=== PATIENT | male | born 1985 | race Two or more races ===

== ENCOUNTER 2018-03-09 13:41 | Emergency (ER) | payer OTHER ==
--- NOTE | 2018-03-09 14:13 | PDOC ---
Rapid Medical Evaluation Medical Evaluation: 03/09/18 14:08 I have performed a brief in-person evaluation of this patient. The patient presents with a chief complaint of: Rash x 1 month, recurrent, tested neg for STDs 4 months ago per pt. Also c/o abd pain w/ nausea x 1 month. Had fever of 102 last night, resolved w/ motrin Pertinent physical exam findings: tachy to 118, erythematous papules to face/b/ l palms, back and knee I have ordered the following:labs The patient will proceed to the ED for further evaluation. Discharge Disposition - Diagnosis Rash and nonspecific skin eruption - Referrals - Patient Instructions - Post Discharge Activity
[2018-03-09 14:24] VITALS: BMI 20.6
[2018-03-09 14:37] LABS: BASO % 0.9 % (0-2.0); EOS % 0.3 % (0-4.5); HEMATOCRIT 34.4 % (35.4-49); HEMOGLOBIN 11.8 GM/dL (11.7-16.9); LYMPH % 29.3 % (8-40); MCH 29.8 pg (25.7-33.7); MCHC 34.4 g/dl (32.0-35.9); MEAN CELL VOLUME 86.8 fl (80-96); MEAN PLT VOLUME 10.1 fl (7.5-11.1); MONO % 6.6 % (3.8-10.2); NEUT % 62.9 % (42.8-82.8); PLATELET COUNT 106 K/MM3 (134-434); RBC 3.96 M/mm3 (4.00-5.60); RDW 12.6 % (11.9-15.9); WHITE BLOOD COUNT 3.1 K/mm3 (4.0-10.0)
[2018-03-09 14:57] LABS: URINE APPEARANCE CLEAR; URINE BILIRUBIN NEGATIVE (<2.0 mg/dL); URINE COLOR AMBER; URINE GLUCOSE (UA) NEGATIVE (NEGATIVE); URINE KETONE NEGATIVE (NEGATIVE); URINE LEUK ESTERASE NEGATIVE (NEGATIVE); URINE NITRITE NEGATIVE (NEGATIVE); URINE UROBILINOGEN 4.0 E.U/dl mg/dL (0.2-1.0)
[2018-03-09 14:58] LABS: URINE PROTEIN 1+ (NEGATIVE)
[2018-03-09 15:02] LABS: EPI CELLS RARE /HPF (FEW); URINE MUCUS RARE
[2018-03-09 15:10] LABS: ALBUMIN 3.5 g/dl (3.4-5.0); ALK PHOS 110 U/L (45-117); ANION GAP 6 (8-16); BILIRUBIN,TOTAL 0.5 mg/dL (0.2-1.0); BLOOD UREA NITROGEN 14 mg/dL (7-18); CALCIUM 8.4 mg/dL (8.5-10.1); CHLORIDE 105 mmol/L (98-107); CO2 29 mmol/L (21-32); CREATININE 0.8 mg/dL (0.7-1.3); GLUCOSE,RANDOM 86 mg/dL (74-106); POTASSIUM 4.1 mmol/L (3.5-5.1); SGOT/AST 35 U/L (15-37); SGPT/ALT 26 U/L (12-78); SODIUM 140 mmol/L (136-145); TOT PROT 7.6 g/dl (6.4-8.2)
[2018-03-09 15:35] LABS: COCAINE, UR NEGATIVE ng/ml (CUTOFF=300); OPIATES, URI NEGATIVE ng/ml (CUTOFF=300); PHENCYCLIDINE,URINE NEGATIVE ng/ml (CUTOFF=25); URINE AMPHETAMINES NEGATIVE ng/ml (CUTOFF=500); URINE BARBITURATES NEGATIVE ng/ml (CUTOFF=200); URINE BENZODIAZEPINES NEGATIVE ng/ml (CUTOFF=200)
[2018-03-09 15:36] LABS: METHADONE, UR NEGATIVE ng/ml (CUTOFF=300)
[2018-03-09] MEDS ORDERED: PANTOPRAZOLE SODIUM 40 MG VIAL IVPUSH ONE (15:53)
[2018-03-09] MEDS ORDERED: SODIUM CHLORIDE 0.9% 500 ML INFUS.BAG IV ONE (15:53)
[2018-03-09] MEDS ORDERED: PANTOPRAZOLE SODIUM 40 MG/100 ML BAG IVPB ONE (16:17)
--- NOTE | 2018-03-09 19:05 | PDOC ---
History of Present Illness - General Chief Complaint: Rash Stated Complaint: RASH, VOMITING Time Seen by Provider: 03/09/18 14:35 History Source: Patient Exam Limitations: No Limitations Past History - Past Medical History Allergies/Adverse Reactions: Allergies Allergy/AdvReac Type Severity Reaction Status Date / Time No Known Allergies Allergy Verified 03/09/18 14:23 Home Medications: Ambulatory Orders NK [No Known Home Medication] 03/09/18 COPD: No - Suicide/Smoking/Psychosocial Hx Smoking History: Current every day smoker Number of Cigarettes Smoked Daily: 3 Information on smoking cessation initiated: No Hx Alcohol Use: No Drug/Substance Use Hx: Yes (Marijuana once daily) *Physical Exam - Vital Signs Last Vital Signs Temp Pulse Resp BP Pulse Ox 98.1 F 118 H 16 107/70 97 03/09/18 14:05 03/09/18 14:05 03/09/18 14:05 03/09/18 14:05 03/09/18 14:05 ED Treatment Course - LABORATORY CBC & Chemistry Diagram: 03/09/18 14:27 03/09/18 14:27 - ADDITIONAL ORDERS Additional order review: Laboratory Results 03/09/18 03/09/18 03/09/18 14:27 14:27 14:27 Sodium Potassium Chloride Carbon Dioxide Anion Gap BUN Creatinine Creat Clearance w eGFR Random Glucose Calcium Total Bilirubin AST ALT Alkaline Phosphatase Total Protein Albumin Lipase 202 Urine Color Jenni Urine Appearance Clear Urine pH 6.0 Ur Specific Nelson 1.026 Urine Protein 1+ H Urine Glucose (UA) Negative Urine Ketones Negative Urine Blood Negative Urine Nitrite Negative Urine Bilirubin Negative Urine Urobilinogen 4.0 e.u/dl Ur Leukocyte Esterase Negative Urine WBC (Auto) 4 Urine RBC (Auto) 1 Ur Epithelial Cells Rare Urine Mucus Rare Opiates Screen Negative Methadone Screen Negative Barbiturate Screen Negative Phencyclidine Screen Negative Ur Amphetamines Screen Negative MDMA (Ecstasy) Screen Negative Benzodiazepines Screen Negative Cocaine Screen Negative U Marijuana (THC) Screen Positive 03/09/18 14:27 Sodium 140 Potassium 4.1 Chloride 105 Carbon Dioxide 29 Anion Gap 6 L BUN 14 Creatinine 0.8 Creat Clearance w eGFR > 60 Random Glucose 86 Calcium 8.4 L Total Bilirubin 0.5 AST 35 ALT 26 Alkaline Phosphatase 110 Total Protein 7.6 Albumin 3.5 Lipase Urine Color Urine Appearance Urine pH Ur Specific Nelson Urine Protein Urine Glucose (UA) Urine Ketones Urine Blood Urine Nitrite Urine Bilirubin Urine Urobilinogen Ur Leukocyte Esterase Urine WBC (Auto) Urine RBC (Auto) Ur Epithelial Cells Urine Mucus Opiates Screen Methadone Screen Barbiturate Screen Phencyclidine Screen Ur Amphetamines Screen MDMA (Ecstasy) Screen Benzodiazepines Screen Cocaine Screen U Marijuana (THC) Screen 03/09/18 14:27 RBC 3.96 L MCV 86.8 MCHC 34.4 RDW 12.6 MPV 10.1 Neutrophils % 62.9 Lymphocytes % 29.3 Monocytes % 6.6 Eosinophils % 0.3 Basophils % 0.9 - RADIOLOGY Radiology Studies Ordered: Category Date Time Status ABDOMEN CT WITH CONTRAST* [CT] Stat CT Scan 03/09/18 16:13 Ordered - Medications Given in the ED: ED Medications Discontinued Medications Generic Name Dose Route Start Last Admin Trade Name Lashell PRN Reason Stop Dose Admin Pantoprazole Sodium 40 mg 03/09/18 15:53 03/09/18 16:25 Protonix Iv IVPUSH 03/09/18 15:54 40 mg ONCE ONE Administration Sodium Chloride 1,000 ml 03/09/18 15:53 03/09/18 16:35 Normal Saline - IV 03/09/18 15:54 1,000 ml ONCE ONE Administration *DC/Admit/Observation/Transfer Diagnosis at time of Disposition: Rash and nonspecific skin eruption - Discharge Dispostion Disposition: HOME Condition at time of disposition: Good Decision to Admit order: No - Referrals Referrals: [facility] [place] [facility] at [place] [Provider Group] - Patient Instructions Additional Instructions: Please follow up with a primary care doctor. I have entered a consult order for you to be able to see the resident outpatient clinic. You would need to call and make an appointment. Their contract information is as follows: [facility] [place] [address] Your primary doctor should continue to look into the rash and the results of your blood work and CT scan. I have attached copies of the radiologists report and the blood results. Please return to the emergency department if you develop a high fever, extreme vomiting, extreme diarrhea, or if you are no longer able to eat or drink. You can also come back if you think your condition has changed and you need to be seen again. - Post Discharge Activity
[2018-03-09 19:11] VITALS: BP 117/65; PULSE 87; TEMP 99.4
--- NOTE | 2018-03-09 19:46 | PDOC ---
*Physical Exam - Vital Signs Last Vital Signs Temp Pulse Resp BP Pulse Ox 99.4 F 87 18 117/65 100 03/09/18 19:09 03/09/18 19:09 03/09/18 19:09 03/09/18 19:09 03/09/18 19:09 ED Treatment Course - LABORATORY CBC & Chemistry Diagram: 03/09/18 14:27 03/09/18 14:27 - ADDITIONAL ORDERS Additional order review: Laboratory Results 03/09/18 03/09/18 03/09/18 14:27 14:27 14:27 Sodium Potassium Chloride Carbon Dioxide Anion Gap BUN Creatinine Creat Clearance w eGFR Random Glucose Calcium Total Bilirubin AST ALT Alkaline Phosphatase Total Protein Albumin Lipase 202 Urine Color Jenni Urine Appearance Clear Urine pH 6.0 Ur Specific [place] 1.026 Urine Protein 1+ H Urine Glucose (UA) Negative Urine Ketones Negative Urine Blood Negative Urine Nitrite Negative Urine Bilirubin Negative Urine Urobilinogen 4.0 e.u/dl Ur Leukocyte Esterase Negative Urine WBC (Auto) 4 Urine RBC (Auto) 1 Ur Epithelial Cells Rare Urine Mucus Rare Opiates Screen Negative Methadone Screen Negative Barbiturate Screen Negative Phencyclidine Screen Negative Ur Amphetamines Screen Negative MDMA (Ecstasy) Screen Negative Benzodiazepines Screen Negative Cocaine Screen Negative U Marijuana (THC) Screen Positive 03/09/18 14:27 Sodium 140 Potassium 4.1 Chloride 105 Carbon Dioxide 29 Anion Gap 6 L BUN 14 Creatinine 0.8 Creat Clearance w eGFR > 60 Random Glucose 86 Calcium 8.4 L Total Bilirubin 0.5 AST 35 ALT 26 Alkaline Phosphatase 110 Total Protein 7.6 Albumin 3.5 Lipase Urine Color Urine Appearance Urine pH Ur Specific [place] Urine Protein Urine Glucose (UA) Urine Ketones Urine Blood Urine Nitrite Urine Bilirubin Urine Urobilinogen Ur Leukocyte Esterase Urine WBC (Auto) Urine RBC (Auto) Ur Epithelial Cells Urine Mucus Opiates Screen Methadone Screen Barbiturate Screen Phencyclidine Screen Ur Amphetamines Screen MDMA (Ecstasy) Screen Benzodiazepines Screen Cocaine Screen U Marijuana (THC) Screen 03/09/18 14:27 RBC 3.96 L MCV 86.8 MCHC 34.4 RDW 12.6 MPV 10.1 Neutrophils % 62.9 Lymphocytes % 29.3 Monocytes % 6.6 Eosinophils % 0.3 Basophils % 0.9 - Medications Given in the ED: ED Medications Discontinued Medications Generic Name Dose Route Start Last Admin Trade Name Freq PRN Reason Stop Dose Admin Pantoprazole Sodium 40 mg 03/09/18 15:53 03/09/18 16:25 Protonix Iv IVPUSH 03/09/18 15:54 40 mg ONCE ONE Administration Sodium Chloride 1,000 ml 03/09/18 15:53 03/09/18 16:35 Normal Saline - IV 03/09/18 15:54 1,000 ml ONCE ONE Administration Medical Decision Making - Medical Decision Making 03/09/18 19:43 pt signed out from Dr. Paiz pending CT imaging in summary 32 YOM with fever, vague abdominal pain and diffuse MP rash. labs with leukopenia 3K, otherwise, RPR and HIV neg CT a/p with splenomegaly/RP adenopathy. no intra abdominal pathology, nonspecific pelvic FF noted. CT results discussed with pt and family member. emphasized close followup, clinic and PMD referrals provided for workup of weight loss/fever and abd pain, malignancy vs infection/inflammatory. VS reviewed, tachycardia resolved (initially 2/2 fever) I discussed the physical exam findings, ancillary test results and final diagnoses with the patient. I answered all of the patient's questions. The patient was satisfied with the care received and felt comfortable with the discharge plan and treatment plan. The patient will return to the Emergency Department with any new, persistent or worsening symptoms. 03/09/18 19:45 03/09/18 19:45 *DC/Admit/Observation/Transfer Diagnosis at time of Disposition: Rash and nonspecific skin eruption, Splenomegaly - Discharge Dispostion Disposition: HOME Condition at time of disposition: Good Decision to Admit order: No - Referrals Referrals: [facility] [place] [Provider Group] - Patient Instructions Additional Instructions: Please follow up with a primary care doctor. I have entered a consult order for you to be able to see the resident outpatient clinic. You would need to call and make an appointment. Their contract information is as follows: [facility] [place] [facility] [place] [address] [id number] Your primary doctor should continue to look into the rash and the results of your blood work and CT scan. I have attached copies of the radiologists report and the blood results. Please return to the emergency department if you develop a high fever, extreme vomiting, extreme diarrhea, or if you are no longer able to eat or drink. You can also come back if you think your condition has changed and you need to be seen again. - Post Discharge Activity
== END 2018-03-09 19:22 | disposition home or self-care (01) ==
LOC: JER 13:41
PROC: 3E0337Z Introduction of Electrolytic and Water Balance Substance into Peripheral Vein, Percutaneous Approach (ICD-10-PCS; principal; 2018-03-09)
PROC: 3E033GC Introduction of Other Therapeutic Substance into Peripheral Vein, Percutaneous Approach (ICD-10-PCS; 2018-03-09)
DX: R21 Rash and other nonspecific skin eruption (principal)
CPT/HCPCS: 36415; 74160-TC; 80053; 80307; 81003; 81015; 83690; 85025; 86593; 87389; 96374; 99283-25